=== PATIENT | male | born 1935 | race Hispanic/Latino ===

== ENCOUNTER → 2020-04-05 | Day surgery (SDC) | payer MEDICARE, OTHER ==
[2020-03-30 15:55] LABS: BASOPHILS % 0.4 % (0.0-1.0); EOSINOPHILS # (AUTO) 0.3 (0.0-0.4); EOSINOPHILS % 4.2 % (0.0-6.0); HEMATOCRIT 33.1 % (38.2-49.6); HEMOGLOBIN 10.6 g/dL (14.0-18.0); LYMPHOCYTES # (AUTO) 2.1 (1.0-3.2); LYMPHOCYTES % 31.3 % (18.0-39.1); MEAN CORPUSCULAR HEMOGLOBIN 27.3 pg (28-32); MEAN CORPUSCULAR VOLUME 85.3 fL (81-99); MONOCYTES # (AUTO) 0.7 (0.2-0.8); MONOCYTES % 10.2 % (4.4-11.3); NEUTROPHILS # (AUTO) 3.6 (2.1-6.9); NEUTROPHILS % 53.5 % (38.7-80.0); PLATELET COUNT 144 x10e3/uL (140-360); RED BLOOD COUNT 3.88 x10e6/uL (4.3-5.7)
[2020-03-30 16:13] LABS: ANION GAP 18.6 mmol/L (8-16); CREATININE, SERUM 1.57 mg/dL (0.72-1.25); POTASSIUM 4.6 mmol/L (3.5-5.1)
--- NOTE | 2020-03-30 16:33 | Diagnostic Imaging Report ---
Exam: CHEST 2 VIEWS Date: 03/30/2020 4:29 PM INDICATION: ^[id number] ^[id number] ^PRE-OP Comparison: None FINDINGS: Lines/Tubes:Midline sternotomy changes are noted along with multiple mediastinal surgical clips. Lungs:The lungs are well inflated. No focal consolidation or pulmonary edema. Pleura:No pleural effusion. No pneumothorax. Heart/Mediastinum:The cardiomediastinal silhouette is normal in size and contour. Atherosclerotic calcifications of the aortic knob are noted. Bones/Soft Tissues: No acute osseous abnormality. Mild multilevel degenerative changes are noted. Upper abdomen: Atherosclerotic calcifications of the abdominal aorta are noted. IMPRESSION: Negative for acute intrathoracic process. Signed by: Tobi Noriega MD on 03/30/2020 4:30 PM
[~2020-04-05] MED LIST: ACTOS30 MG PO; B&O 60MG R/S 60 MG SUPP PR ONE; BASAGLAR K100 UNIT/1 SQ; CARVEDILOL12.5 MG PO; CEFAZOLIN SOD 1 GM/NS 50ML 100 ML IV ONE; DEXAMETHASONE SOD PHOS INJ 4 MG/ML VIAL ONE; DILANTIN100 MG PO; ECOTRIN81 MG PO; EPHEDRINE SULFATE INJ 50 MG/ML VIAL ONE; FENTANYL CITRATE/PF 100MCG/2 ML INJ ONE; FLOMAX0.4 MG PO; GENTAMICIN SULFATE 40 MG/ML 2 ML VIAL ONE; GLIMEPIRIDE4 MG PO; GLYCOPYRROLATE INJ 0.2 MG/ML VIAL ONE; IOPAMIDOL 300MG/ML 50ML INFUS..BTL IV ONE; LEVOTHYROXINE50 MCG PO; LIDOCAINE HCL 2% LOCAL INJ 5 ML SDV VIAL INJ ONE; LOSARTAN-HCTZ1 EAC1 PO; LOVASTATIN40 MG PO; MAGNESIUM PO; METFORMIN HCL500 MG PO; OMEPRAZOLE40 MG PO; ONDANSETRON HCL INJ 2MG/ML 2ML 2 MG/ML VIAL ONE; PROPOFOL IV EMULSION 10 MG/ML 20 ML VIAL ONE; SEVOFLURANE INHAL SOLN 250 ML PEN BTL ONE
[2020-04-05 15:31] VITALS: BP 176/75
--- NOTE | 2020-04-05 20:28 | Operative Report ---
DATE OF PROCEDURE: 04/05/2020 SURGEON: Kathleen Tai MD SERVICE: Urology. PREOPERATIVE DIAGNOSES: 1. Urinary retention. 2. Benign prostatic hypertrophy. 3. Microhematuria. POSTOPERATIVE DIAGNOSES: 1. Urinary retention. 2. Benign prostatic hypertrophy. 3. Microhematuria. OPERATION PERFORMED: 1. Cystoscopy and bilateral retrograde pyelograms under fluoroscopic control. This is done in no relation to the benign prostatic hypertrophy, for assessment of history of urinary tract infection and microhematuria. 2. Prostrate surgery using plasma instrument. [employer]: None. ANESTHESIA: General. CLINICAL INDICATION: Note, this is an 84-year-old patient, who has history of urinary retention, has a chronic indwelling Zambrano. He was brought for assessment of the upper tract and prostate surgery. Procedure was discussed with the patient and family, potential benefit and complication discussed and it was accepted. DESCRIPTION OF PROCEDURE AND FINDINGS: After the proper level of anesthesia was achieved, the patient was placed in a lithotomy position, prepped and draped in a sterile fashion. Urethra inspected and appeared to be unremarkable. Bladder outlet was obstructed by small prostate with a regrowth of prostatic tissue, mostly from the right side. The bladder is extensively trabeculated. Ureteral orifices were identified. Cone-tipped catheter was then used and bilateral retrograde pyelograms were done under fluoroscopic control. No intrinsic lesions were identified in the ureters or upper collecting system. Following this, the scope was removed. The resectoscope was inserted and systematic removal of the prostatic tissue with the plasma instrument was used. Following this, any visible bleeding ports were carefully coagulated. The bladder was filled up with irrigation fluid and Crede maneuver demonstrated good flow. A 22-Finnish, 30 mL 3-way Zambrano catheter was inserted and connected to continuous irrigation with normal saline. The patient tolerated the procedure well, was transferred in satisfactory condition to recovery room after placement of B and O suppository. Followup given as well as pain management and antibiotic. The patient was given followup. Kathleen Tai MD NH/MODL /[id number]
== END | disposition home or self-care (01) ==
LOC: OR 13:42
PROVIDERS: ATTEND Urology
DX: N40.1 Benign prostatic hyperplasia with lower urinary tract symptoms (principal); R33.8 Other retention of urine; N39.0 Urinary tract infection, site not specified; E11.9 Type 2 diabetes mellitus without complications; N32.89 Other specified disorders of bladder; I25.810 Atherosclerosis of coronary artery bypass graft(s) without angina pectoris; Z01.810 Encounter for preprocedural cardiovascular examination; Z01.812 Encounter for preprocedural laboratory examination; Z01.818 Encounter for other preprocedural examination; Z11.59 Encounter for screening for other viral diseases; Z79.84 Long term (current) use of oral hypoglycemic drugs; Z79.4 Long term (current) use of insulin; Z79.82 Long term (current) use of aspirin; Z95.1 Presence of aortocoronary bypass graft
CPT/HCPCS: 36415 ×2; 52005; 52601; 71046; 74420; 80048; 82948; 85025; C1758 ×2; J0690; J1100; J1580; J2001; J2405; J2704; Q9967; U0002; J3010